=== PATIENT | male | born 1975 | race Caucasian/White ===

== ENCOUNTER 2019-08-19 14:09 | Emergency (ER) | payer SELFPAY ==
[2019-08-19 14:16] VITALS: BP 130/86; PULSE 86; RESP 14; TEMP 37.1; O2SAT 97; BMI 31.6
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
[2019-08-19 16:04] VITALS: BP 127/53; PULSE 67; RESP 16; O2SAT 97
== END 2019-08-19 16:04 | disposition home or self-care (01) ==
LOC: ER 16:10
PROVIDERS: Emergency Provider Physician Assistant
DX: M54.2 Cervicalgia (principal); M54.5 Low back pain; V86.55XA Driver of 3- or 4- wheeled all-terrain vehicle (ATV) injured in nontraffic accident, initial encounter; F17.210 Nicotine dependence, cigarettes, uncomplicated
CPT/HCPCS: 12345; 70450; 72125; 72128; 72131; 99281; 99283

== ENCOUNTER 2020-06-29 14:39 | Emergency (ER) | payer SELFPAY ==
[2020-06-29 14:52] VITALS: BP 167/130; PULSE 68; RESP 28; TEMP 36.6; O2SAT 99; BMI 30.7
--- NOTE | 2020-06-29 15:26 | ED_ITS ---
HPI - Abdominal Pain General: Chief Complaint: Abdominal Pain Stated Complaint: ab pain Time Seen by Provider: 06/29/20 15:18 History of Present Illness: HPI narrative: Patient is a 45-year-old male comes to the ED with right flank pain. Patient says that this morning he woke up and had sharp pain in his right lower back. He rates the pain a 10 out of 10. He says he has pain radiating down into the front right lower part of abdomen as well. He has had nausea and an episode of emesis due to pain. He has no history of kidney stones. He says today he felt like he needed to urinate and only urinated a little bit. Denies any fever. Associated Symptoms: Reports nausea and vomiting; Denies chills, constipation, diarrhea, dysuria, fever(s), hematochezia and hematuria Review of Systems Const: Denies: fever(s), chills or fatigue Eyes: Denies: change in vision or eye discomfort ENMT: Denies: throat pain, odynophagia, nasal discharge or nasal congestion Card: Denies: chest pain, palpitations, edema, swelling of feet/ankles, dyspnea on exertion or orthopnea Resp: Denies: dyspnea, productive cough or non-productive cough GI: Reports: abdominal pain, nausea and vomiting; Denies: diarrhea, constipation or hematochezia : Reports: flank pain (right flank); Denies: difficulty urinating, dysuria or hematuria Musc: Denies: neck pain, back pain or extremity swelling Skin/Breast: Denies: rash or new lesions Neuro: Denies: headache(s), numbness in extremities or weakness in extremities [facility] ED PFSH: Social History Smoking and tobacco status: current every day smoker Physical Exam Narrative: EXAM NARRATIVE: Patient is a 45-year-old male that has in pain and constantly moving on exam bed when I enter the room. Const: COMMON NORMALS: patient oriented x3 and alert GENERAL APPEARANCE: cooperative; not comfortable (Uncomfortable due to pain and is constantly moving on exam bed.) HENMT: COMMON NORMALS: normocephalic HEAD & SCALP: normocephalic MOUTH: Normal oral and palatal mucosa present THROAT: posterior oropharynx normal and uvula midline Neck/C-Spine: COMMON NORMALS: supple GENERAL: Yes normal visual inspection Resp: COMMON NORMALS: normal respiratory effort, No retractions, No use of accessory muscles and clear to auscultation bilaterally AUSCULTATION: clear to auscultation bilaterally Cardio: COMMON NORMALS: regular rate, regular rhythm, S1 normal heart sound present, S2 normal heart sound present, No gallops present (Cardio), No clicks present (Cardio), No murmurs present (Cardio) and Peripheral pulses 2+ th roughout RATE: regular rate RHYTHM: regular rhythm HEART SOUNDS: S1 normal heart sound present and S2 normal heart sound present PERIPHERAL PULSES: Peripheral pulses 2+ throughout GI: COMMON NORMALS: Normal to inspection, nondistended, normoactive bowel sounds present, Soft to palpation, non-tender and no masses PALPATION: Yes Soft to palpation : BLADDER/KIDNEY EXAM: Yes CVA tenderness Back/Pelvis: GENERAL BACK: Yes CVA tenderness CVA tenderness: right Extremity: COMMON NORMALS: normal to inspection Neuro: COMMON NORMALS: patient oriented x3 SENSORIUM/ORIENTATION: Yes alert GAIT: Yes Normal gait present Skin: GENERAL SKIN EXAM: dry skin Course Vital Signs: Vital signs: Vital Signs Temperature 98 F 06/29/20 14:52 Pulse Rate 68 06/29/20 14:52 Respiratory Rate 16 06/29/20 15:39 Blood Pressure 167/130 06/29/20 14:52 Pulse Oximetry 99 06/29/20 14:52 MDM - Abdominal Pain MDM Narrative: Medical decision making narrative: Patient is a 45-year-old male comes to the ED with right flank pain. Upon exam patient is constantly moving and pain. He has right CVA tenderness. White blood cell count 12.7 rest of the labs were unremarkable. CT kidney stone was performed and it showed a 2 mm distal right ureteral stone that is obstructing. Patient was given IV fluids, morphine and then Toradol for pain. He was also given a dose of tamsulosin while here in the ED. I placed an order with case management for Patient to be referred to Dr. Melton. Patient diagnosed with a kidney stone on the right side and sent home with a prescription for Zofran, tamsulosin and and naproxen. I also sent him home with a written prescription for hydrocodone for breakout pain. He was told to try to catch stone and collected to take it to Dr. Melton at the scheduled appointment. I told him telehealth case manager will contact him in next several days set up an appointment with Dr. Melton. Return to ED precautions given. Patient understood and agree with plan. Lab Data: Labs: Lab Results 06/29/20 06/29/20 Range/Units 15:40 15:40 WBC 12.7 H (4.0-10.0) 10^3/ uL RBC 5.53 H (4.1-5.3) 10^6/u L Hgb 15.6 (11.7-16.6) g/dL Hct 47.1 (42.0-52.0) % MCV 85.2 (80-94) fL MCH 28.2 (28.0-34.0) pg MCHC 33.1 (30.0-36.0) g/dL RDW 13.4 (12.1-15.1) % Plt Count 443 H (130-400) 10^3/c mm MPV 10.2 (7.4-10.4) fL Neut % (Auto) 70.7 % Lymph % (Auto) 14.4 % [place] % (Auto) 10.2 % Eos % (Auto) 4.0 % Baso % (Auto) 0.4 % Neut # (Auto) 8.96 H (1.8-7.7) 10^3/u L Lymph # (Auto) 1.8 (0.8-4.8) 10^3/u L [place] # (Auto) 1.3 H (0.2-0.9) 10^3/u L Eos # (Auto) 0.5 (0.0-0.8) 10^3/u L Baso # (Auto) 0.1 (0.0-0.1) 10^3/u L Nucleated RBC % (a uto) 0 % Nucleated RBCs # 0.0 /100WBC Sodium 139 (136-145) mmol/L Potassium 4.0 (3.5-5.1) mmol/L Chloride 103 (98-107) mmol/L Carbon Dioxide 24 (22-29) mmol/L Anion Gap 16.0 (5-19) BUN 12 (6-20) mg/dL Creatinine 0.9 (0.7-1.2) mg/dL GFR Calculation 90.4 (90-130) mL/min Glucose 84 (65-115) mg/dL Calculated Osmolal ity 287 (285-295) mOsm/k g Calcium 9.1 (8.5-10.5) mg/dL Total Bilirubin 0.3 (0.15-1.2) mg/dL AST 22 (0-40) U/L ALT 20 (0-41) U/L Alkaline Phosphata se 146 H (40-130) IU/L Total Protein 7.4 (6.6-8.7) g/dL Albumin 4.7 (3.5-5.2) g/dL Globulin 2.7 (1.3-4.6) g/dL Lipase 30 (13-60) U/L Imaging Data ^: CT Abd/Pel: Attestation: I personally reviewed and interpreted this imaging study as follows: Radiologist's impression: [employer] [address] [address] Scan Report Signed Patient: Denver Hodgson #: [id number] : 1975Acct#:[id number] Age/Sex: 45 / MADM Date: 06/29/20 Loc: ERRoom/Bed: Attending Dr: Ordering Provider/Ordering MD: Ricky Long Date of Service: 06/29/20 Procedure(s): CT kidney stone 09655 Accession Number(s): [id number] Report Number: [id number] PROCEDURE INFORMATION: Exam: CT Abdomen And Pelvis Without Contrast Exam date and time: 06/29/2020 3:47 PM Age: 45 years old Clinical indication: Pain; Other: Flank; Prior surgery; Surgery type: Left hip; Additional info: Right flank pain TECHNIQUE: Imaging protocol: Computed tomography of the abdomen and pelvis without contrast. Radiation optimization: All CT scans at this facility use at least one of these dose optimization techniques: automated exposure control; mA and/or kV adjustment per patient size (includes targeted exams where dose is matched to clinical indication); or iterative reconstruction. COMPARISON: No relevant prior studies available. RADIATION DOSE METRICS: Total DLP (mGy-cm): 1387.71 FINDINGS: Lungs: Mild atelectasis versus fibrosis noted at the lung bases. Liver: The liver is unremarkable in appearance. Gallbladder and bile ducts: No calcified gallstones in the gallbladder. No gallbladder wall thickening. No pericholecystic fluid. No biliary dilatation. Pancreas: The pancreas is normal in appearance. No pancreatic duct dilatation. Spleen: The spleen is normal in size and appearance. Adrenal glands: The adrenal glands appear within normal limits. Kidneys and ureters: Mild right hydroureteronephrosis. There is a 2 mm distal right ureteral calculus, series 2, image 148. Findings are consistent with right obstructive uropathy. Nonobstructing bilateral 2 mm renal calculi are noted. No left hydronephrosis. Left ureter appears normal. Stomach and bowel: No acute gastric abnormality demonstrated. The small bowel is unremarkable as demonstrated. No acute gastric abnormality demonstrated. The small bowel is unremarkable as demonstrated. No acute abnormality/inflammatory change of the colon. Appendix: The appendix is normal in appearance. No evidence of appendicitis. Intraperitoneal space: No pneumoperitoneum. No significant fluid collection. Vasculature: Minimal atherosclerosis of the aorta and the iliac arteries. No aortic or iliac artery aneurysm. Lymph nodes: No enlarged lymph nodes. Urinary bladder: The urinary bladder is unremarkable in appearance. The urinary bladder is unremarkable in appearance. Reproductive: Unremarkable as visualized. Bones/joints: Postop changes of the left acetabulum. Degenerative disc change in the lower lumbar spine. No acute osseous abnormality demonstrated. Soft tissues: Unremarkable. CT/CT kidney stone [id number] IMPRESSION: 1. Mild right hydroureteronephrosis. There is a 2 mm distal right ureteral calculus, series 2, image 148. Findings are consistent with right obstructive uropathy. 2. Additional nonobstructing bilateral 2 mm renal calculi are noted. Radiation Dose CTDIVOL = (mGy): DLP = 1387.71 (mGy-cm) Dictated By:Joe Crawford MD Signed By:Joe Crawford MDSigned Date/Time:06/29/201607 DD/ 1606 Discharge Plan Discharge Patient Disposition: Home Clinical Impression: Kidney stone on right side Condition: Stable Prescriptions: New tamsulosin 0.4 mg capsule 0.4 mg PO DAILY Qty: 20 RF: 0 Zofran 4 mg tablet 4 mg PO Q8H Qty: 12 RF: 0 Naprosyn 500 mg tablet 500 mg PO BID PRN (Reason: pain) Qty: 12 RF: 0 No Action No Known Home Medications RF: 0 Discharge Orders: Discharge ED (Routine); Ordered 06/29/20 Ordered By: Ricky Long Discharge Diet: Regular Discharge Activity: Increase activity as tolerated Patient Instructions: Kidney Stones (ED), How to Strain Your Urine (ED), Opioid Safety Activity Restrictions/Additional Instructions: Follow-up with medical provider as directed. Case management should be contacting you in the next several days to set up an appointment with Dr. Melton the urologist. Strain urine to catch stone and drink lots of fluid to stay hydrated and help pass stone. Take medications as prescribed. You can take ibuprofen or Aleve for any pain or fevers. Return to the ER or your medical provider if condition worsens. Please read and understand discharge instructions. If any questions, please ask. 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
[2020-06-29 15:39] VITALS: RESP 16
[2020-06-29] MEDS: morphine 4 mg/mL SDV 1 mL IM (15:39)
--- NOTE | 2020-06-29 15:44 | CTR_ITS ---
PROCEDURE INFORMATION: Exam: CT Abdomen And Pelvis Without Contrast Exam date and time: 06/29/2020 3:47 PM Age: 45 years old Clinical indication: Pain; Other: Flank; Prior surgery; Surgery type: Left hip; Additional info: Right flank pain TECHNIQUE: Imaging protocol: Computed tomography of the abdomen and pelvis without contrast. Radiation optimization: All CT scans at this facility use at least one of these dose optimization techniques: automated exposure control; mA and/or kV adjustment per patient size (includes targeted exams where dose is matched to clinical indication); or iterative reconstruction. COMPARISON: No relevant prior studies available. RADIATION DOSE METRICS: Total DLP (mGy-cm): 1387.71 FINDINGS: Lungs: Mild atelectasis versus fibrosis noted at the lung bases. Liver: The liver is unremarkable in appearance. Gallbladder and bile ducts: No calcified gallstones in the gallbladder. No gallbladder wall thickening. No pericholecystic fluid. No biliary dilatation. Pancreas: The pancreas is normal in appearance. No pancreatic duct dilatation. Spleen: The spleen is normal in size and appearance. Adrenal glands: The adrenal glands appear within normal limits. Kidneys and ureters: Mild right hydroureteronephrosis. There is a 2 mm distal right ureteral calculus, series 2, image 148. Findings are consistent with right obstructive uropathy. Nonobstructing bilateral 2 mm renal calculi are noted. No left hydronephrosis. Left ureter appears normal. Stomach and bowel: No acute gastric abnormality demonstrated. The small bowel is unremarkable as demonstrated. No acute gastric abnormality demonstrated. The small bowel is unremarkable as demonstrated. No acute abnormality/inflammatory change of the colon. Appendix: The appendix is normal in appearance. No evidence of appendicitis. Intraperitoneal space: No pneumoperitoneum. No significant fluid collection. Vasculature: Minimal atherosclerosis of the aorta and the iliac arteries. No aortic or iliac artery aneurysm. Lymph nodes: No enlarged lymph nodes. Urinary bladder: The urinary bladder is unremarkable in appearance. The urinary bladder is unremarkable in appearance. Reproductive: Unremarkable as visualized. Bones/joints: Postop changes of the left acetabulum. Degenerative disc change in the lower lumbar spine. No acute osseous abnormality demonstrated. Soft tissues: Unremarkable. CT/CT kidney stone [id number] IMPRESSION: 1. Mild right hydroureteronephrosis. There is a 2 mm distal right ureteral calculus, series 2, image 148. Findings are consistent with right obstructive uropathy. 2. Additional nonobstructing bilateral 2 mm renal calculi are noted. Radiation Dose CTDIVOL = (mGy): DLP = 1387.71 (mGy-cm)
[2020-06-29 15:48] LABS: Basophils # 0.1 10^3/uL (0.0-0.1); Basophils % 0.4 %; Eosinophils # 0.5 10^3/uL (0.0-0.8); Hematocrit 47.1 % (42.0-52.0); Hemoglobin 15.6 g/dL (11.7-16.6); Lymphocytes # 1.8 10^3/uL (0.8-4.8); Lymphocytes % 14.4 %; Mean Corpuscular HGB Conc 33.1 g/dL (30.0-36.0); Mean Corpuscular Hemoglobin 28.2 pg (28.0-34.0); Mean Corpuscular Volume 85.2 fL (80-94); Mean Platelet Volume 10.2 fL (7.4-10.4); Monocytes # 1.3 10^3/uL (0.2-0.9); Monocytes % 10.2 %; Neutrophils # 8.96 10^3/uL (1.8-7.7); Neutrophils % 70.7 %; Nucleated Red Blood Cells % 0 %; Platelet Count 443 10^3/cmm (130-400); Red Blood Count 5.53 10^6/uL (4.1-5.3); Red Cell Distribution Width 13.4 % (12.1-15.1); White Blood Count 12.7 10^3/uL (4.0-10.0)
[2020-06-29 16:29] LABS: Alanine Aminotransferase 20 U/L (0-41); Albumin Level 4.7 g/dL (3.5-5.2); Alkaline Phosphatase 146 IU/L (40-130); Aspartate Amino Transferase 22 U/L (0-40); Blood Urea Nitrogen 12 mg/dL (6-20); Calcium 9.1 mg/dL (8.5-10.5); Carbon Dioxide 24 mmol/L (22-29); Chloride 103 mmol/L (98-107); Globulin 2.7 g/dL (1.3-4.6); Glomerular Filtration Rate 90.4 mL/min (90-130); Glucose 84 mg/dL (65-115); Lipase 30 U/L (13-60); Osmolality Calculated 287 mOsm/kg (285-295); Sodium 139 mmol/L (136-145); Total Bilirubin 0.3 mg/dL (0.15-1.2); Total Protein 7.4 g/dL (6.6-8.7)
[2020-06-29] MEDS: tamsulosin 0.4 mg Capsule PO (16:30)
[2020-06-29] MEDS: sodium chloride 0.9% 500 ML 999 ML IV (16:31)
[2020-06-29] MEDS: ketorolac 30 mg/mL INJ IVP (17:29)
--- NOTE | 2020-07-02 08:49 | DCPLANNER ---
manager technology had message to schedule a follow up appointment for patient with Dr. Melton. manager technology called the office of Dr. Melton, spoke with Nat, gave clinic patients information. manager technology was told that patients information would be printed and reviewed. Clinic will call patient with appointment information.
--- NOTE | 2020-07-03 14:53 | DCPLANNER ---
Dr. De Paz office called family caseworker stating that they were unable to reach patient to schedule an appointment, so appointment was cancelled. manager chinese tried to call patient, unable to speak with patient.
== END 2020-06-29 17:36 | disposition home or self-care (01) ==
PROVIDERS: Emergency Provider Physician Assistant
DX: N20.0 Calculus of kidney (principal); F17.210 Nicotine dependence, cigarettes, uncomplicated
CPT/HCPCS: 74176; 80053; 83690; 85025; 96361; 96372; 96374; 99283; J1885; J2270; J7040